=== PATIENT | male | born 1955 | race Caucasian/White ===

== ENCOUNTER 2024-02-27 10:14 | Outpatient (CLI) | payer MEDICARE ==
[2024-02-27 15:05] LABS: BASOPHILS # (AUTO) 0.1 10^3/uL (0.0-0.1); EOSINOPHILS # (AUTO) 0.1 10^3/uL (0.0-0.7); EOSINOPHILS % (AUTO) 2.1 %; HCT - HEMATOCRIT 41.8 % (42.0-52.0); HGB - HEMOGLOBIN 13.7 g/dL (14.0-18.0); LYMPHOCYTES # (AUTO) 1.1 10^3/uL (1.5-3.5); LYMPHOCYTES % (AUTO) 16.6 %; MEAN CORPUSCULAR HEMOGLOBIN 30.4 pg (27.0-31.0); MEAN CORPUSCULAR HGB CONC 32.8 g/dL (32.0-36.0); MEAN CORPUSCULAR VOLUME 92.9 fL (80.0-94.0); MEAN PLATELET VOLUME 11.2 fL (7.4-11.4); MONOCYTES # (AUTO) 0.6 10^3/uL (0.0-1.0); MONOCYTES % (AUTO) 9.2 %; NEUTROPHILS # (AUTO) 4.8 10^3/uL (1.5-6.6); PLT - PLATELET COUNT 185 10^3/uL (130-450); RED CELL DISTRIBUTION WIDTH 14.4 % (12.0-15.0); WHITE BLOOD COUNT 6.7 x10^3/uL (4.8-10.8)
[2024-02-27 15:11] LABS: ALBUMIN 4.5 g/dL (3.2-5.5); ALBUMIN/GLOBULIN RATIO 1.5 (1.0-2.2); ALKALINE PHOSPHATASE 54 IU/L (42-121); ALT ALANINE AMINOTRANSFERASE 22 IU/L (10-60); AST ASPARTATE AMINOTRANSFERASE 21 IU/L (10-42); BILIRUBIN,TOTAL 1.2 mg/dL (0.2-1.0); BUN - BLOOD UREA NITROGEN 12 mg/dL (6-20); CALCIUM 9.5 mg/dL (8.5-10.3); CARBON DIOXIDE - CO2 29 mmol/L (21-32); CHLORIDE 102 mmol/L (101-111); CHOL/HDL RATIO 3.8 (<5.0); CHOLESTEROL 245 mg/dL; CREATININE 0.8 mg/dL (0.6-1.3); GFR - MDRD 97 (>89); GLUCOSE 97 mg/dL (74-104); HDL CHOLESTEROL 64 mg/dL; LDL CHOLESTEROL,CALCULATED 161 mg/dL; LDL/HDL RATIO 2.5 (<3.6); POTASSIUM 4.1 mmol/L (3.5-4.5); SODIUM 137 mmol/L (135-145); TOTAL PROTEIN 7.6 g/dL (6.4-8.9); TRIGLYCERIDES 100 mg/dL (48-352); VLDL CHOLESTEROL 20 mg/dL
[2024-02-27 20:25] LABS: ESTIMATED AVERAGE GLUCOSE 103 mg/dL (70-100); HEMOGLOBIN A1c% 5.2 % (4.27-6.07)
== END 2024-02-27 10:15 | disposition home or self-care (01) ==
LOC: LAB.S 10:14
PROVIDERS: ATTEND Physician Assistant Medical
DX: I10 Essential (primary) hypertension (principal); E78.1 Pure hyperglyceridemia; Z13.9 Encounter for screening, unspecified
CPT/HCPCS: 36415; 80053; 80061; 83036; 83721; 84153; 85025

== ENCOUNTER 2024-03-15 13:56 | Outpatient (CLI) | payer MEDICARE ==
--- NOTE | 2024-03-15 17:03 | XRAY Report ---
PROCEDURE: Knee 3V LT INDICATIONS: KNEE JOINT PAIN TECHNIQUE: 3 views of the knee(s) were acquired. COMPARISON: None. FINDINGS: Bones: No fractures or dislocations. No patella subluxation. Mild medial and lateral femoral tibial compartment joint space narrowing is seen. No suspicious bony lesions. Soft tissues: No knee joint effusion. No suspicious soft tissue calcifications or masses. IMPRESSION: No acute bony abnormality. 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 Reviewed by: Quirino Hopson MD on 03/15/2024 5:02 PM PDT Approved by: Quirino Hopson MD on 03/15/2024 5:02 PM PDT Station ID: [id number]
== END 2024-03-15 13:57 | disposition home or self-care (01) ==
LOC: DI.S 13:56
PROVIDERS: ATTEND Physician Assistant Medical
DX: M17.12 Unilateral primary osteoarthritis, left knee (principal)

== ENCOUNTER 2024-04-26 11:50 | Outpatient (CLI) | payer MEDICARE ==
--- NOTE | 2024-04-26 13:17 | XRAY Report ---
PROCEDURE: Knee 2V LT INDICATIONS: DEGENERATIVE JOINT DISEASE LT KNEE TECHNIQUE: 2 views of the knee(s) were acquired. COMPARISON: 03/15/2024. FINDINGS: Bones: No fractures or dislocations. Mild medial and lateral femoral tibial compartment joint space narrowing and subchondral sclerosis is seen. No suspicious bony lesions. Soft tissues: No knee joint effusion. No suspicious soft tissue calcifications or masses. IMPRESSION: No acute bony abnormality. 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 Reviewed by: Quirino Rush MD on 04/26/2024 1:16 PM PDT Approved by: Quirino Rush MD on 04/26/2024 1:16 PM PDT Station ID: [id number]
== END 2024-04-26 11:51 | disposition home or self-care (01) ==
LOC: DI.S 11:50
PROVIDERS: ATTEND Physician Assistant Surgical
DX: M17.9 Osteoarthritis of knee, unspecified (principal)

== ENCOUNTER 2024-08-12 13:08 | Outpatient (CLI) | payer MEDICARE ==
--- NOTE | 2024-08-12 15:29 | MRI Report ---
Knee LT WO CLINICAL INFORMATION: 69 years of age, Male, L KNEE INTERNAL DERANGEMENT. COMPARISON: None Technique: Multisequence, multiplanar MRI of the left knee was performed without intravenous contrast . FINDINGS: Menisci: The medial and lateral menisci, including the roots, are intact. Cruciate ligaments: The anterior and posterior cruciate ligaments are intact. MCL/LCL: Grade 1 sprain of the MCL. The biceps femoris tendon is unremarkable. The fibular collateral ligament is unremarkable. The iliotibial band is intact. The popliteus muscle and tendon also appear intact. Extensor mechanism: The quadricep tendon is unremarkable. The patella tendon is unremarkable. Patellofemoral joint: Alignment within the patellofemoral joint is normal. The patellofemoral ligame nts are intact. There is multifocal high-grade chondral irregularity in the medial patellar facet and the median ridge, with mild subchondral marrow edema. Small area of high-grade chondral loss in the central trochlea. Cartilage and bone: In the medial compartment, there is mild chondral thinning in the weightbearing p ortion of the medial femoral condyle. In the lateral compartment, the cartilage is grossly well maint ained. 3.3 cm mildly T1 hypointense lesion without definitive T2 hypointensity, in the medial aspect of the proximal tibia metaphysis,, nonspecific but favors benign etiology. Miscellaneous: Small knee effusion. Partially ruptured, small popliteal cyst. No intra-articular bodi es are identified. Susceptibility artifact about the pes anserinus tendons, postprocedural. There is mild tenosynovitis of the pes anserinus tendon with mild pes anserinus bursitis. The pes anserinus tendons are grossly i ntact. IMPRESSION: 1.Grade 1 sprain of the MCL. 2.Postprocedural changes about the pes anserinus tendons, with mild tenosynovitis, and mild pes anser inus bursitis. 3.Mild, patellofemoral compartment predominant chondrosis. Reviewed by: Destiny Tanner MD on 08/12/2024 3:28 PM PDT Approved by: Destiny Tanner MD on 08/12/2024 3:28 PM PDT Station ID: [id number]
== END 2024-08-12 13:09 | disposition home or self-care (01) ==
LOC: DI 13:08
PROVIDERS: ATTEND Physician Assistant Surgical
DX: S83.412A Sprain of medial collateral ligament of left knee, initial encounter (principal); M70.52 Other bursitis of knee, left knee; M94.262 Chondromalacia, left knee